=== PATIENT | female | born 1990 | race Caucasian/White ===

== ENCOUNTER 2020-06-29 14:39 | Emergency (ER) | payer OTHER ==
[~2020-06-29 14:39] MED LIST: KEFLEX CAP 500500 MG PO
== END 2020-06-29 15:30 | disposition home or self-care (01) ==
LOC: ER1 14:39
DX: S70.02XA Contusion of left hip, initial encounter (principal); F17.210 Nicotine dependence, cigarettes, uncomplicated; W01.0XXA Fall on same level from slipping, tripping and stumbling without subsequent striking against object, initial encounter; Y92.009 Unspecified place in unspecified non-institutional (private) residence as the place of occurrence of the external cause
CPT/HCPCS: 73502; 99283